=== PATIENT | female | born 1960 | race Caucasian/White ===

== ENCOUNTER 2022-04-07 10:48 | Day surgery (SDC) | payer OTHER, BC, SELFPAY ==
[2022-04-07] VITALS (15 sets, daily range): BP systolic 91–121; BP diastolic 58–76; PULSE 60–66; RESP 14–16; TEMP 36.4–37.1; O2SAT 92–99; BMI 38.9
[2022-04-07] MEDS: ACETAMINOPHEN 500 MG TABLET 1000 MG PO (11:27)
[2022-04-07] MEDS: OXYCODONE (CR) 10 MG TAB.ER.12H PO (11:27)
--- NOTE | 2022-04-07 11:33 | W.ANESCHARGE ---
Anesthesia Charges Start Date/Time Anesthesia Start Date: 04/07/22 Anesthesia Start Time: 11:57 Stop Date/Time Anesthesia Stop Date: 04/07/22 Anesthesia Stop Time: 13:56
[2022-04-07] MEDS: LACTATED RINGERS 1000 ML 1,000 ML 100 ML IV (11:35)
[2022-04-07] MEDS: SODIUM CHLORIDE 0.9 % (FLUSH) 10 ML SYRINGE IVF (11:35)
[2022-04-07] MEDS: fentaNYL 100 MCG/2 ML inj IVP (11:44)
[2022-04-07] MEDS: MIDAZOLAM HCL 1 MG/ML inj IVP (11:44)
--- NOTE | 2022-04-07 11:56 | SUR.PREOP ---
TIME?OUT:?1143 PT/RN/MDA?VERIFICATION?OF?SURGICAL?SITE,?PROCEDURE,?AND?CONSENT OBTAINED?PRIOR?TO?INVASIVE?PROCEDURE. All in agreement.
--- NOTE | 2022-04-07 11:59 | SUR.PREOP ---
Patient provided home covid negative results to RN.
--- NOTE | 2022-04-07 12:03 | SUR.PREOP ---
Celebrex not given in preop because pt has history of bariatric surgery. aware.
[2022-04-07] MEDS: CEFAZOLIN 2 GM INJ IVP (12:12)
--- NOTE | 2022-04-07 13:27 | PM.ORPRC ---
Procedure Note Date of procedure: 04/07/22 Procedure: PREOPERATIVE DIAGNOSIS: Right shoulder rotator cuff tear, AC joint arthrosis, biceps tendinopathy POSTOPERATIVE DIAGNOSIS: Right shoulder rotator cuff tear, AC joint arthrosis, biceps tendinopathy NAME OF OPERATION: Right shoulder arthroscopic subacromial decompression, distal clavicle excision, mini open rotator cuff repair, biceps tenodesis SURGEON: Ponce Rodríguez MD PROJECTION TECHNICIAN: Courtney Horner PA-C ANESTHESIA: Supraclavicular block plus general endotracheal ESTIMATED BLOOD LOSS: 5 mL COMPLICATIONS: None SPECIMENS: None DRAINS: None PREOPERATIVE ANTIBIOTICS: Ancef 2 grams INDICATIONS: The patient is a 62-year-old with a history of right shoulder pain secondary to the above diagnoses. Despite appropriate non operative management, they continue to have symptoms. Operative intervention was recommended. The risks, benefits and expected outcomes were discussed in detail. These included but were not limited to: Infection, bleeding, injury to blood vessel or nerve, venous thromboembolism. All questions were answered to their satisfaction. PROCEDURE: A supraclavicular block was placed by Anesthesia. General anesthesia was administered. The patient was placed in the high beach chair position. The right shoulder was prepped and draped in the usual sterile fashion. The glenohumeral joint was infiltrated with 20 mL of normal saline with epinephrine. The posterior portal was established, the arthroscope was introduced. The anterior portal was established, Diagnostic arthroscopy was performed with findings as follows: The biceps has a marked amount of intra-articular tendinopathy The anterior, posterior and superior labrum shows age-appropriate degenerative tearing. Articular surfaces on the humeral head and glenoid are normal. There are no loose bodies. There is a full-thickness tear of the supraspinatus. The biceps was tenotomized with the scissors. The stump was resected with the shaver. The labrum was circumferentially debrided with the shaver. The arthroscope was placed in the subacromial space, the lateral portal was established. The Arthrex [place] was used to dissect the acromion free. The CA ligament was recessed off the anterior acromion, the AC joint was exposed. The acromioplasty was performed with the bur in the posterior portal. The bur was then placed in the lateral portal and the lateral and anterior aspect of the acromion were resected. The undersurface of the distal clavicle was resected through the lateral portal. Finally, the bur was placed in the anterior portal and the remainder of the distal clavicle was resected for a total of 10 mm. An accessory anterolateral portal was placed. The subacromial/subdeltoid bursa was aggressively debrided. There is a full-thickness tear of the supraspinatus. Arthroscopic instruments were removed. The accessory anterolateral portal was extended proximally and distally, subcutaneous dissection was taken with electrocautery to the deltoid. The deltoid was divided in line with its fibers. The static retractor was placed. The subacromial/subdeltoid bursa was debrided with the Stephens scissors. The greater and lesser tuberosities were debrided to punctate bleeding bone using the arthroscopic bur. A suture tape was placed in the subscap in an inverted mattress fashion. A whipstitch was placed in the biceps. These sutures were placed into a SwiveLock anchor over the proximal, lateral aspect of the lesser tuberosity, completing the subscap repair and biceps tenodesis. Two Arthrex BioComposite SwiveLock anchors were placed just off the articular surface. Both limbs of the FiberWire and fiber tape were passed using the scorpion. A fiber link was placed in the leading edge of the rotator cuff x2. Two margin convergence sutures were placed in the far lateral aspect of the cuff tear. We tied the 2 central FiberWire sutures over the rotator cuff. We then proceeded with a lateral row of SwiveLock anchors x 2 crossing the FiberTape and incorporating the FiberWire and fiber link into each lateral row anchor. This provides an anatomic, watertight repair of the rotator cuff. There is no tension on the repair with the shoulder at 0? abduction. The wound was irrigated with normal saline off the pump. The deltoid was repaired with an 0 Vicryl in an interrupted [id number] fashion. Subcutaneous tissues were closed with a 3-0 Vicryl. Skin was closed with a 3-0 Monocryl in a subcuticular fashion. A dry dressing, polar care and sling were applied. Sponge and needle counts were correct x2. The patient tolerated the procedure well. There were no apparent complications. They were carefully transferred to the hospital bed and taken to the postanesthesia care unit in satisfactory condition. PLAN: The patient will be discharged to home. No active range of motion of the shoulder will be allowed for 6 weeks postoperatively. They can work on active range of motion of the elbow, wrist and fingers. They will follow up in the office next week for a wound check and an AP and transscapular Y-view of the shoulder prior to being seen.
--- NOTE | 2022-04-07 13:57 | W.ANESCHARGE ---
Anesthesia Charges Start Date/Time Anesthesia Start Date: 04/07/22 Anesthesia Start Time: 11:57 Stop Date/Time Anesthesia Stop Date: 04/07/22 Anesthesia Stop Time: 13:56
--- NOTE | 2022-04-07 14:13 | W.PM.NB ---
Nerve Block Nerve Block Time Seen by Provider: 11:46 Date Seen: 04/07/22 Type of block requested by surgeon for post-operative analgesia: supraclavicular Side: right Time out performed: Yes Verification of patient name: Yes Verification of date of : Yes Site marking: site marked Name of person performing procedure: Wilmer Continuous monitoring Was continuous monitoring of O2 sat, B/P, marketing development representative, recorded every 15 minutes?: Yes Procedure Checklist: sterile prep, needles and gloves Ultrasound guided. Images saved: Yes Medications given in 5ml increments after negative aspiration: Ropivicaine %: 0.5 mL: 20 Needle gauge: 22 Decadron (mg): 10 Precedex (mcg): 25 Patient tolerated procedure well: Yes Block Charges Block Charge (with Pro Fee): Brachial Plexus Use of Ultrasound Machine for Block: Yes- US Guidance/pain block
== END 2022-04-07 15:52 | disposition home or self-care (01) ==
PROVIDERS: PCP Nurse Practitioner Family; Visit Provider Orthopaedic Surgery
PROC: (CPT 23412; principal; 2022-04-07 12:30)
DX: M75.101 Unspecified rotator cuff tear or rupture of right shoulder, not specified as traumatic (principal); M19.011 Primary osteoarthritis, right shoulder; M75.21 Bicipital tendinitis, right shoulder
CPT/HCPCS: 29826; 29828; 29824; 23412; 01630; 64415; 76942; A9270; C1713; J0690; J1100; J2250; J2370; J2405; J2704; J2795; J3010; J7120

== ENCOUNTER 2023-02-01 07:47 | Day surgery (SDC) | payer BC, SELFPAY ==
[2023-02-01] VITALS (13 sets, daily range): BP systolic 86–111; BP diastolic 59–74; PULSE 61–70; RESP 16; TEMP 36.1–36.5; O2SAT 93–99; BMI 36.3
[2023-02-01] MEDS: SODIUM CHLORIDE 0.9 % (FLUSH) 10 ML SYRINGE IVF (08:20)
[2023-02-01] MEDS: LACTATED RINGERS 1000 ML 1,000 ML 100 ML IV (08:20)
[2023-02-01] MEDS: CEFAZOLIN 2 GM INJ IVP (08:43)
[2023-02-01] MEDS: BUPIVACAINE 0.25% 30 ML INJECTION (09:24)
--- NOTE | 2023-02-01 09:32 | PM.ORPRC ---
Procedure Note Date of procedure: 02/01/23 Procedure: PREOPERATIVE DIAGNOSIS: Left knee lateral meniscus tear POSTOPERATIVE DIAGNOSIS: Left knee lateral meniscus tear NAME OF OPERATION: Left knee arthroscopic partial lateral meniscectomy SURGEON: Ponce Rodríguez MD DEPARTMENT OF MATHEMATICS CHAIR: Courtney Horner PA-C ANESTHESIA: Spinal ESTIMATED BLOOD LOSS: 0 mL COMPLICATIONS: None SPECIMENS: None DRAINS: None PREOPERATIVE ANTIBIOTICS: Ancef 2 gram INDICATIONS: The patient is a 62-year-old with a history of left knee lateral pain. MRI scan is consistent with a lateral meniscus tear. Despite appropriate nonoperative management, including activity modification, antiinflammatories, [id number] pain medication, bracing, physical therapy, and injections they continue to have pain and disability. Operative intervention was offered. The risks, benefits and expected outcomes were discussed in detail. These included but were not limited to: Infection, bleeding, injury to blood vessel or nerve, venous thromboembolism. All questions were answered to their satisfaction. PROCEDURE: Spinal anesthesia was administered. The patient was placed supine on the operating room table. The left lower extremity was prepped and draped in the usual sterile fashion. The limb was exsanguinated with the Meet bandage. The pneumatic tourniquet was inflated to 300 mmHg. A standard anterolateral portal was established. The arthroscope was introduced. The working portal was established anteromedially. Diagnostic arthroscopy was performed with findings as follows: The suprapatellar pouch is normal. Articular surface on the patella shows diffuse grade 2 change. Articular surface on the trochlea shows diffuse grade 2 change. The medial gutter is normal. The medial compartment shows diffuse grade 3 change on the medial femoral condyle, grade 2 change on the medial tibial plateau. The medial meniscus has some age-appropriate degenerative fraying of the leading edge of the posterior horn, without meaningful tearing, the root is intact. The notch shows the ACL to be intact. The lateral compartment shows a focal area of grade 3 change on weight-bearing portion of the lateral femoral condyle, laterally. The lateral meniscus has degenerative tearing of the anterior horn at the junction with the midbody with some of the meniscus flipped up, toward the lateral gutter. There is additional degenerative tearing at the anterior tibial attachment with a flap flipped up, toward the notch. The lateral gutter is normal. The anterior horn of the lateral meniscus was debrided to a stable base using a combination of loco through both portals. Unstable chondral flaps on the medial and lateral femoral condyle were debrided with the shaver through both portals, taken to a stable base. Arthroscopic instruments were removed, the portal sites were Steri-Stripped closed, the knee was infiltrated with 30 mL of 0.25% Marcaine without epinephrine. A dry dressing was applied, the tourniquet was released. Sponge and needle counts were correct x 2. The patient tolerated the procedure well. There were no apparent complications. They were carefully transferred to the hospital bed and taken to the postanesthesia care unit in satisfactory condition. PLAN: The patient will be discharged to home. They may weightbear as tolerates. Range of motion will be unrestricted. They will follow up in the office next week for a wound check.
--- NOTE | 2023-02-01 09:39 | W.ANESCHARGE ---
Anesthesia Charges Start Date/Time Anesthesia Start Date: 02/01/23 Anesthesia Start Time: 08:33 Stop Date/Time Anesthesia Stop Date: 02/01/23 Anesthesia Stop Time: 09:37
--- NOTE | 2023-02-01 10:27 | W.ANESCHARGE ---
Anesthesia Charges Start Date/Time Anesthesia Start Date: 02/01/23 Anesthesia Start Time: 08:33 Stop Date/Time Anesthesia Stop Date: 02/01/23 Anesthesia Stop Time: 09:37
== END 2023-02-01 11:19 | disposition home or self-care (01) ==
PROVIDERS: PCP Nurse Practitioner Family; Visit Provider Orthopaedic Surgery
PROC: (CPT 29870; principal; 2023-02-01 08:45)
DX: M23.242 Derangement of anterior horn of lateral meniscus due to old tear or injury, left knee (principal)
CPT/HCPCS: 29881; 01400; J0665; J0690; J1100; J2250; J2371; J2405; J2704; J3010; J7120

== ENCOUNTER 2024-12-04 06:13 | Day surgery (SDC) | payer BC, SELFPAY ==
[2024-12-04] VITALS (15 sets, daily range): BP systolic 90–124; BP diastolic 58–72; PULSE 62–70; RESP 14–16; TEMP 36.3–37.1; O2SAT 92–98; BMI 36.6
[2024-12-04] MEDS: ACETAMINOPHEN 500 MG TABLET 1000 MG PO (06:30)
[2024-12-04] MEDS: OXYCODONE (CR) 10 MG TAB.ER.12H PO (06:30)
[2024-12-04] MEDS: SODIUM CHLORIDE 0.9 % (FLUSH) 10 ML SYRINGE IVF (06:50)
[2024-12-04] MEDS: LACTATED RINGERS 1000 ML 1,000 ML 100 ML IV ×2 (06:50→09:45)
[2024-12-04] MEDS: MIDAZOLAM HCL 1 MG/ML inj IVP (06:57)
--- NOTE | 2024-12-04 07:20 | SUR.PREOP ---
TIME?OUT:?0656 PT/RN/MDA?VERIFICATION?OF?SURGICAL?SITE,?PROCEDURE,?AND?CONSENT OBTAINED?PRIOR?TO?INVASIVE?PROCEDURE.
[2024-12-04] MEDS: EPINEPHrine 1 MG in SODIUM CHLORIDE IRRIG SOLUTION 3,000 ML 3001 MG IRRIGATION ×5 (07:47→08:40)
--- NOTE | 2024-12-04 07:59 | SUR.OPER ---
PATIENT QUESTIONS ANSWERED SATISFACTORILY PREOPERATIVELY. PATIENT BROUGHT TO OR #3 PER CART FOLLOWING THE BLOCK. Patient positioned supine on OR #3 bed for the intubation.? Perioperative team wrapped the right arm in a neutral position on the pt. abdomen with the drawsheet. Left arm elevated on an IV pole in a padded strap. Final approval of positioning by surgeon. CONTINUOUS IRRIGATION OF THE LEFT SHOULDER WITH MIXTURE OF 3000 NACL AND 1mg OF EPINEPHRINE DURING PROCEDURE.
--- NOTE | 2024-12-04 08:09 | P.NB_ITS ---
Nerve Block Nerve Block Time Seen by Provider: 07:00 Date Seen: 12/04/24 Type of block requested by surgeon for post-operative analgesia: supraclavicular Side: left Time out performed: Yes Verification of patient name: Yes Verification of date of : Yes Site marking: site marked Name of person performing procedure: Wilmer Continuous monitoring Was continuous monitoring of O2 sat, B/P, cardiac catheterization technologist, recorded every 15 minutes?: Yes Procedure Checklist: sterile prep, needles and gloves Ultrasound guided. Images saved: Yes Medications given in 5ml increments after negative aspiration: Ropivicaine %: 0.5 mL: 20 Needle gauge: 22 Precedex (mcg): 25 Patient tolerated procedure well: Yes Block Charges Block Charge (with Pro Fee): Brachial Plexus Use of Ultrasound Machine for Block: Yes- US Guidance/pain block
--- NOTE | 2024-12-04 08:10 | P.ANES_ITS ---
Anesthesia Charges Start Date/Time Anesthesia Start Date: 12/04/24 Anesthesia Start Time: 07:05 Stop Date/Time Anesthesia Stop Date: 12/04/24 Anesthesia Stop Time: 09:18 Coding CPT Codes CPT Codes: ANESTH SURGERY OF SHOULDER - 46819 ([id number]) QK - GETTER FILLER 2-4 CNCRNT ANES PROC, QX - BROWN STOCK WASHER SVC W/ MD MED DIRECTION, P3 - PATIENT W/SEVERE SYS DISEASE
--- NOTE | 2024-12-04 08:10 | W.ANESCHARGE ---
Anesthesia Charges Start Date/Time Anesthesia Start Date: 12/04/24 Anesthesia Start Time: 07:05 Stop Date/Time Anesthesia Stop Date: 12/04/24 Anesthesia Stop Time: 09:18 Coding CPT Codes CPT Codes: ANESTH SURGERY OF SHOULDER - 86556 ([id number]) QK - MEDICAL SECRETARY RECEPTIONIST 2-4 CNCRNT ANES PROC, QX - DRAFTER LANDSCAPE SVC W/ MD MED DIRECTION, P3 - PATIENT W/SEVERE SYS DISEASE
[2024-12-04] MEDS: LACTATED RINGERS 500 ML 500 ML 125 ML IV (08:16)
--- NOTE | 2024-12-04 09:15 | P.ANES_ITS ---
Anesthesia Charges Start Date/Time Anesthesia Start Date: 12/04/24 Anesthesia Start Time: 07:05 Stop Date/Time Anesthesia Stop Date: 12/04/24 Anesthesia Stop Time: 09:18 Coding CPT Codes CPT Codes: ANESTH SURGERY OF SHOULDER - [id number] ([id number]) P3 - PATIENT W/SEVERE SYS DISEASE, QK - LODGE OFFICER 2-4 CNCRNT ANES PROC
--- NOTE | 2024-12-04 09:15 | W.ANESCHARGE ---
Anesthesia Charges Start Date/Time Anesthesia Start Date: 12/04/24 Anesthesia Start Time: 07:05 Stop Date/Time Anesthesia Stop Date: 12/04/24 Anesthesia Stop Time: 09:18 Coding CPT Codes CPT Codes: ANESTH SURGERY OF SHOULDER - 75499 ([id number]) P3 - PATIENT W/SEVERE SYS DISEASE, QK - SECURITY SYSTEM ADMINISTRATOR 2-4 CNCRNT ANES PROC
--- NOTE | 2024-12-04 09:16 | P.ORPRC_ITS ---
Procedure Note Date of procedure: 12/04/24 Procedure: PREOPERATIVE DIAGNOSIS: Left shoulder rotator cuff tear, labral tearing POSTOPERATIVE DIAGNOSIS: Left shoulder rotator cuff tear, labral tearing NAME OF OPERATION: Left shoulder arthroscopic limited glenohumeral joint debridement, subacromial decompression, mini open rotator cuff repair SURGEON: Ponce Rodríguez MD RESEARCH CONTRACTS SUPERVISOR: Magali Lund PA-C ANESTHESIA: Supraclavicular block plus general endotracheal ESTIMATED BLOOD LOSS: 5 mL COMPLICATIONS: None SPECIMENS: None DRAINS: None PREOPERATIVE ANTIBIOTICS: Ancef 2 grams INDICATIONS: The patient is a 64-year-old with a history of left shoulder pain secondary to the above diagnoses. Despite appropriate non operative management, they continue to have symptoms. Operative intervention was recommended. The risks, benefits and expected outcomes were discussed in detail. These included but were not limited to: Infection, bleeding, injury to blood vessel or nerve, venous thromboembolism. All questions were answered to their satisfaction. PROCEDURE: A supraclavicular block was placed by Anesthesia. General anesthesia was administered. The patient was placed in the high beach chair position. The left shoulder was prepped and draped in the usual sterile fashion. The glenohumeral joint was infiltrated with 20 mL of normal saline with epinephrine. The posterior portal was established, the arthroscope was introduced. The anterior portal was established, Diagnostic arthroscopy was performed with findings as follows: The biceps is torn and retracted out of the glenohumeral joint. Deep surface of the upper border of the insertion of the subscap is torn. The anterior, posterior and superior labrum show significant degenerative tearing . Articular surface on the humeral head shows a small focal area of grade 4 change posteriorly, articular surface on the glenoid has a small patch of grade 4 change centrally. There are no loose bodies. There is a full-thickness tear of the supraspinatus. The labrum was circumferentially debrided with the shaver. Unstable chondral flaps on the humeral head and glenoid were debrided with the shaver. The undersurface of the supraspinatus and subscap were debrided with the shaver. The arthroscope was placed in the subacromial space, the lateral portal was established. The Arthrex [place] was used to dissect the acromion free. The CA ligament was recessed off the anterior acromion, the AC joint was exposed. The acromioplasty was performed with the bur in the posterior portal. The bur was then placed in the lateral portal and the lateral and anterior aspect of the acromion were resected. The AC joint was inspected. The previous distal clavicle excision was felt to be adequate. An accessory anterolateral portal was placed. The subacromial/subdeltoid bursa was aggressively debrided. There is a full-thickness tear of the supraspinatus. Arthroscopic instruments were removed. The accessory anterolateral portal was extended proximally and distally, subcutaneous dissection was taken with electrocautery to the deltoid. The deltoid was divided in line with its fibers. The static retractor was placed. The subacromial/subdeltoid bursa was debrided with the Stephens scissors. The anterior insertion of the supraspinatus was released with the scalpel to the bicipital groove and the upper border of the subscap, exposing its tear. The greater and lesser tuberosities were debrided to punctate bleeding bone using the arthroscopic bur. A suture tape was placed in the subscap in an inverted mattress fashion. Two Arthrex FiberTak anchors were placed just off the articular surface. Both limbs of the FiberWire and fiber tape were passed using the scorpion. A fiber link was placed in the leading edge of the rotator cuff x2. We tied the 2 central FiberWire sutures over the rotator cuff. We then proceeded with a lateral row of SwiveLock anchors x 2 crossing the FiberTape and incorporating the FiberWire and fiber link into each lateral row anchor. The suture tape in the subscap was placed in a SwiveLock anchor, just medial to the bicipital groove. The sutures on the eyelets of the lateral row anchors were passed through the leading edge of the rotator cuff and tied, resulting in 3 simple sutures. This provides an anatomic, watertight repair of the rotator cuff. There is no tension on the repair with the shoulder at 0? abduction. The wound was irrigated with normal saline off the pump. The deltoid was repaired with an 0 Vicryl in an interrupted [id number] fashion. Subcutaneous tissues were closed with a 3-0 Vicryl. Skin was closed with a 3-0 Monocryl in a subcuticular fashion. A dry dressing and sling were applied. Sponge and needle counts were correct x2. The patient tolerated the procedure well. There were no apparent complications. They were carefully transferred to the hospital bed and taken to the postanesthesia care unit in satisfactory condition. PLAN: The patient will be discharged to home. No active range of motion of t he shoulder will be allowed for 6 weeks postoperatively. They can work on active range of motion of the elbow, wrist and fingers. They will follow up in the office next week for a wound check and an AP and transscapular Y-view of the shoulder prior to being seen.
[2024-12-04] MEDS: OXYCODONE 1 MG/ML ORAL SOLN 5 MG PO (11:08)
== END 2024-12-04 11:54 | disposition home or self-care (01) ==
LOC: OR 06:15
PROVIDERS: PCP Nurse Practitioner Family; Visit Provider Orthopaedic Surgery
PROC: (CPT 23412; principal; 2024-12-04 07:00)
DX: M75.122 Complete rotator cuff tear or rupture of left shoulder, not specified as traumatic (principal); S43.432A Superior glenoid labrum lesion of left shoulder, initial encounter; G89.18 Other acute postprocedural pain
CPT/HCPCS: 29822; 29826; 23412; 01630; 64415; 76942; A9270; C1713; J0169; J0330; J0690; J1100; J2250; J2371; J2405; J2704; J2795; J3010; J3490; J7120; L3670